=== PATIENT | female | born 1975 | race Caucasian/White ===

== ENCOUNTER 2020-12-19 16:07 | Emergency (ER) | payer OTHER ==
[~2020-12-19] VITALS: Ht 162.6 cm; Wt 65.9 kg
[2020-12-19 16:42] VITALS: BP 124/85
[2020-12-19 17:40] LABS: CLARITY,URINE HAZY; COLOR,URINE ORANGE
[2020-12-19 17:41] LABS: BACTERIA,URINE 0 /HPF (0-FEW); SQUAMOUS EPITHELIAL CELL,UR FEW /LPF; WBC,URINE >40 /HPF (0-4)
[2020-12-19] MEDS ORDERED: CEPHALEXIN 250 MG CAPSULE PO ONE (18:45)
[2020-12-19] MEDS ORDERED: oxyCODONE/APAP 5/325 1 TAB TABLET PO ONE (18:45)
[2020-12-19] MEDS ORDERED: KETOROLAC 30 MG/ML VIAL. IM ONE (19:00)
--- NOTE | 2020-12-19 19:19 | PHYS DOC ---
Past History Past Surgical History: Hysterectomy, Tonsillectomy Additional Past Surgical Histo: hernia, R carpal tunnel sx Alcohol Use: None Adult General Chief Complaint Chief Complaint: PAIN ON URINATION HPI HPI Patient is a 45-year-old female who presents with dysuria, frequency and urgency as well as hematuria with left-sided flank pain that started this morning, sharp in nature, 7 out of 10 with a little radiation to the groin. States he never had anything like this before. Denies any recent traumas, travels, illnesses, fevers, chest pain, shortness of breath, other abdominal pain, nausea, vomiting, diarrhea. Denies any Covid/flu/cold symptoms. Review of Systems Review of Systems Review of systems otherwise unremarkable except noted in HPI Current Medications Current Medications Current Medications Medications (Trade) Dose Ordered Sig/Areli Start Time Stop Time Status Last Admin Dose Admin Cephalexin HCl (Keflex) 500 mg 1X ONCE 12/19/20 18:45 12/19/20 18:46 DC 12/19/20 18:51 500 MG Ketorolac Tromethamine (Toradol 30mg Vial) 30 mg 1X ONCE 12/19/20 19:00 12/19/20 19:01 DC 12/19/20 19:03 30 MG Oxycodone/ Acetaminophen (Percocet 5/325) 2 tab 1X ONCE 12/19/20 18:45 12/19/20 18:46 DC Allergies Allergies Allergies Coded Allergies Type Severity Reaction Last Updated Verified No Known Drug Allergies 12/19/20 No Physical Exam Physical Exam Constitutional: Well developed, well nourished, no acute distress, non-toxic appearance. [] HENT: Normocephalic, atraumatic, Eyes:conjunctiva normal, no discharge. [] Neck: Normal range of motion, no tenderness, supple, no stridor. [] Cardiovascular:Heart rate regular rhythm, no murmur [] Lungs & Thorax: Bilateral breath sounds clear to auscultation [] Abdomen: soft, no tenderness, no masses, no pulsatile masses. [] Skin: Warm, dry, no erythema, no rash. [] Back: Left CVA tenderness. [] Extremities: No tenderness, , ROM intact, no edema. [] Neurologic: Alert and oriented X 3, no focal deficits noted. [] Psychologic: Affect normal, judgement normal, mood normal. [] Current Patient Data Vital Signs Vital Signs Date Time Temp Pulse Resp B/P (MAP) Pulse Ox O2 Delivery O2 Flow Rate FiO2 12/19/20 16:42 97.9 80 16 124/85 100 Room Air Lab Results Laboratory Tests Test 12/19/20 16:48 Urine Collection Type Unknown Urine Color Bertie Urine Clarity Hazy Urine pH Urine Specific [place] Urine Protein (NEG-TRACE) Urine Glucose (UA) mg/dL (NEG) Urine Ketones (Stick) mg/dL (NEG) Urine Blood (NEG) Urine Nitrite (NEG) Urine Bilirubin (NEG) Urine Urobilinogen Dipstick mg/dL (0.2 mg/dL) Urine Leukocyte Esterase (NEG) Urine RBC 11-20 /HPF (0-2) Urine WBC >40 /HPF (0-4) Urine Squamous Epithelial Cells Few /LPF Urine Bacteria 0 /HPF (0-FEW) EKG EKG [] Radiology/Procedures Radiology/Procedures []ndings: Lower chest: No consolidation or pleural effusion. Abdomen and pelvis: The liver, spleen, adrenal glands, and pancreas are unremarkable. Contracted gallbladder. No hydronephrosis. No renal, ureteral or urinary bladder calculus. Mild urinary bladder wall thickening with adjacent edema. Normal appendix. No evidence of bowel obstruction. No pathologic lym phadenopathy. No ascites. Small periumbilical fat-containing hernia. Prior hysterectomy. Bones: No pathologic osseous lesions. Impression: 1. Mild urinary bladder wall thickening with adjacent edema, concerning for cystitis. No obstructing urolithiasis. Electronically signed by: Melquiades Barros DO (12/19/2020 7:42 PM) [facility] Heart Score C/O Chest Pain: No Risk Factors: Risk Factors: DM, Current or recent (<one month) smoker, HTN, HLP, family history of CAD, obesity. Risk Scores: Risk Factors: DM, Current or recent (<one month) smoker, HTN, HLP, family history of CAD, obesity. Course & Med Decision Making Course & Med Decision Making Patient is a 45-year-old female who presents with left flank pain, dysuria and urinary frequency with hematuria Vital signs not concerning. Physical exam noted above. Patient given pain management. Denies need for nausea management. Started on Keflex despite no ba cteria in the urine, as patient states she has had multiple UTIs in the past and would like some antibiotics. Urine with hematuria, pyuria. CT notable for mild urinary bladder wall thickening with adjacent edema concerning for cystitis with no obstructing urolithiasis. Discussed all findings with patient. Advised on pain management at home. Advised to take antibiotics. Advised to follow-up in the morning with primary care physician and set up a follow-up appointment in the next week for reevaluation and urinalysis. Patient grateful, verbalized understanding and agreed with plan of discharge. [] Dragon Disclaimer Dragon Disclaimer This electronic medical record was generated, in whole or in part, using a voice recognition dictation system. Departure Departure: Impression: Primary Impression: Hematuria Additional Impressions: Pyuria Dysuria Cystitis Disposition: HOME / SELF CARE / HOMELESS Condition: GOOD Referrals: PCP,UNKNOWN (PCP) YOGI MURRAY Patient Instructions: Diet for Kidney Stones, Dysuria, Hematuria, Adult Additional Instructions: Thank you for coming into the emergency department and allowing us to take care of you. Please read all the attached information above. You can use Tylenol, and Benadryl as needed at home for pain including ice and heat. Please continue take your antibiotics as prescribed. Please stay well-hydrated. Please call your primary care physician in the morning to update on ED visit and set up a follow-up as soon as possible for reevaluation and urinalysis. Please come back to the ED with new or concerning symptoms as discussed. Scripts Cephalexin (CEPHALEXIN) 500 Mg Capsule 1 CAP PO BID for cystitis for 5 Days, #10 CAP Prov: ROBINSON TITUS MD 12/19/20 Problem Qualifiers ROBINSON TITUS MD Dec 19, 2020 19:19
--- NOTE | 2020-12-19 19:44 | RAD ---
CT ABDOMEN+PELVIS WO History: Reason: left flank pain, hematuria / Spl. Instructions: / History: Technique: Noncontrast examination of the abdomen and pelvis. Coronal and sagittal reconstructions we re performed. Exposure: One or more of the following individualized dose reduction techniques were utilized for thi s examination: 1. Automated exposure control 2. Adjustment of the mA and/or kV according to patient size 3. Use of iterative reconstruction technique. Comparison: None Findings: Lower chest: No consolidation or pleural effusion. Abdomen and pelvis: The liver, spleen, adrenal glands, and pancreas are unremarkable. Contracted gall bladder. No hydronephrosis. No renal, ureteral or urinary bladder calculus. Mild urinary bladder wall thickeni ng with adjacent edema. Normal appendix. No evidence of bowel obstruction. No pathologic lymphadenopathy. No ascites. Small p eriumbilical fat-containing hernia. Prior hysterectomy. Bones: No pathologic osseous lesions. Impression: 1. Mild urinary bladder wall thickening with adjacent edema, concerning for cystitis. No obstructing urolithiasis. Electronically signed by: Melquiades Barros DO (12/19/2020 7:42 PM) [facility] [place]
[2020-12-19] MEDS ORDERED: CEPH500C PO (19:52)
== END 2020-12-19 19:58 | disposition home or self-care (01) ==
LOC: ER 16:07
DX: N30.91 Cystitis, unspecified with hematuria (principal); R82.81 Pyuria; R30.0 Dysuria; Z90.710 Acquired absence of both cervix and uterus
CPT/HCPCS: 74176; 81001; 87086; 96372; 99284; J1885